=== PATIENT | male | born 1995 | race American Indian/Alaskan Native ===

== ENCOUNTER 2020-05-25 14:22 | Emergency (ER) | payer SELFPAY ==
[2020-05-25 14:31] VITALS: BP 127/76
--- NOTE | 2020-05-25 14:31 | Emergency Department Report ---
Chief Complaint: Nausea/Vomiting/Diarrhea Stated Complaint: SICK/FEELING ILL Time Seen by Provider: 05/25/20 14:31 - HPI History of Present Illness: This is a 25-year-old male who presents to the ED stating that he had another upset stomach this morning with 1 episode of vomiting stating that he ate some bad food last night. Patient states that he was not able to go to work due to the upset stomach and one episode of vomiting. Patient states that vomiting resolved and he is no longer vomiting. Patient denies abdominal pain, shortness of breath, chest pain, fever, diarrhea or any other symptoms. Patient states that he was sent to be evaluated prior to returning back to work. - ROS Review of Systems: As noted in HPI - Exam Physical Exam: GENERAL: Alert and oriented x3, no apparent distress, Normal Gait, atraumatic. HEAD: Head is normocephalic and a-traumatic. NOSE: Nose symetrical, Nontender,Nares appeared normal. ABDOMEN: Nontender to all quadrants, normal bowel sounds. SKIN: Warm and dry, No lesions, No ulceration or induration present. MSE screening note: Focused history and physical exam performed. Due to findings the following was ordered: ED Disposition for MSE Clinical Impression: Gastroenteritis, non-infectious Disposition: DC-01 TO HOME OR SELFCARE Is pt being admited?: No Does the pt Need Aspirin: No Condition: Stable Instructions: Viral Gastroenteritis, Adult Additional Instructions: Make sure to follow up with the primary care physician as discussed. Take all your medications as you've been prescribed. If you have any worsening symptoms or develop new symptoms please return to ED immediately. Referrals: PRIMARY CARE, [Primary Care Provider] - 3-5 Days [facility] [Outside] - 3-5 Days [facility] [Outside] - 3-5 Days Forms: Work/School Release Form(ED) Time of Disposition: 14:55
== END 2020-05-25 14:59 | disposition home or self-care (01) ==
LOC: ED 14:22
DX: K52.9 Noninfective gastroenteritis and colitis, unspecified (principal)
CPT/HCPCS: 99282